=== PATIENT | male | born 1945 | race Hispanic/Latino ===

== ENCOUNTER 2020-04-28 05:13 | Day surgery (SDC) | payer MEDICARE ==
[2020-04-28] MEDS ORDERED: PROPARACAINE 0.5% OPHTH SOL 15 ML BTTL RIGHT_EYE ONE ×2 (08:36→08:53)
[2020-04-28] MEDS ORDERED: MOXIFLOXACIN HCL (OPHTH) 1 DROP DROPS RIGHT_EYE ONE ×2 (08:36→08:53)
[2020-04-28] MEDS ORDERED: LIDOCAINE 1% 2 ML VIAL INJ ONE ×2 (08:36→08:53)
[2020-04-28] MEDS ORDERED: TOBRAMYCIN SULF 0.3 % OPHT SOL 1 DROP RIGHT_EYE ONE ×2 (08:37→08:53)
[2020-04-28] MEDS ORDERED: DEXAMETHASONE 0.1% OPHTH SOL 1 DROP RIGHT_EYE ONE ×2 (08:37→08:53)
[2020-04-28] MEDS ORDERED: BRIMONIDINE 0.2% OPHTH DROPS RIGHT_EYE ONE ×2 (08:37→08:53)
[2020-04-28] MEDS ORDERED: MIDAZOLAM INJ 2 MG/2 ML VIAL ONE (08:54)
== END 2020-04-28 09:50 | disposition home or self-care (01) ==
LOC: AMB 05:13
PROVIDERS: ATTEND Ophthalmology
DX: H25.11 Age-related nuclear cataract, right eye (principal); I10 Essential (primary) hypertension; Z79.899 Other long term (current) drug therapy
CPT/HCPCS: 00142; 66984; J2250

== ENCOUNTER 2020-05-12 05:19 | Day surgery (SDC) | payer MEDICARE ==
[2020-05-12] MEDS ORDERED: TROP1%/CYCLOPEN 1%/PHENYL 2.5% DROPS OPHTH ONE (05:20)
[2020-05-12] MEDS ORDERED: PROPARACAINE 0.5% OPHTH SOL 15 ML BTTL LEFT_EYE ONE (09:54)
[2020-05-12] MEDS ORDERED: MIDAZOLAM INJ 2 MG/2 ML VIAL ONE (09:54)
[2020-05-12] MEDS ORDERED: LIDOCAINE 1% MPF 2 ML VIAL INJ ONE (10:02)
[2020-05-12] MEDS ORDERED: MOXIFLOXACIN HCL (OPHTH) 1 DROP DROPS LEFT_EYE ONE ×2 (10:02→10:20)
[2020-05-12] MEDS ORDERED: TOBRAMYCIN SULF 0.3 % OPHT SOL 1 DROP LEFT_EYE ONE ×2 (10:03→10:20)
[2020-05-12] MEDS ORDERED: BRIMONIDINE 0.2% OPHTH DROPS LEFT_EYE ONE ×2 (10:03→10:20)
[2020-05-12] MEDS ORDERED: DEXAMETHASONE 0.1% OPHTH SOL 1 DROP LEFT_EYE ONE ×2 (10:03→10:20)
== END 2020-05-12 10:52 | disposition home or self-care (01) ==
LOC: AMB 05:19
PROVIDERS: ATTEND Ophthalmology
DX: H25.12 Age-related nuclear cataract, left eye (principal); I10 Essential (primary) hypertension
CPT/HCPCS: 66984; J2250